=== PATIENT | female | born 1990 | race Caucasian/White ===

== ENCOUNTER 2019-05-23 16:52 | Outpatient (CLI) | payer OTHER, SELFPAY ==
--- NOTE | ~2019-05-23 | XR_ITS ---
EXAMINATION: XR knee LT 3V DATE: 05/23/2019 17:17 INDICATION: Left knee pain TECHNIQUE: Three views of the left knee were obtained. COMPARISON: 12/03/2014 FINDINGS: Alignment is normal. No fracture or osteochondral lesion. Joint spaces are normal with no e rosions. No joint effusion/synovitis. Soft tissues are unremarkable. IMPRESSION: 1. No acute osseous abnormality. Reviewed, dictated and finalized at location A. 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
== END 2019-05-23 16:53 | disposition home or self-care (01) ==
LOC: ANHIMG 16:57
PROVIDERS: PCP Physician Assistant Medical; Visit Provider Orthopaedic Surgery
DX: M25.562 Pain in left knee (principal)
CPT/HCPCS: 73562

== ENCOUNTER 2019-10-31 07:38 | Outpatient (CLI) | payer OTHER, SELFPAY ==
[2019-10-31 07:54] LABS: Hematocrit 38.3 % (37.0-47.0); Mean Corpuscular HGB Conc 33.9 g/dl (32-36); Mean Corpuscular Hemoglobin 30.2 pg (26-34); Mean Corpuscular Volume 89.1 fl (80-100); Mean Platelet Volume 11.3 fl (7.4-10.4); Platelet Count Result 261 k/mm3 (150-375); Red Cell Distribution Width 12.4 % (11.5-14.5); White Blood Count 10.8 K/mm3 (4.5-10.0)
[2019-10-31 08:04] LABS: Blood Urea Nitrogen 12 mg/dL (7-17); Calcium 9.1 mg/dL (8.4-10.2); Carbon Dioxide 24 mmol/L (22-30); Chloride 104 mmol/L (98-107); Cholesterol 197 mg/dL (0-200); Estimated Glomerular Filt Rate > 60; Glucose 87 mg/dL (65-105); HDL Direct 43 mg/dL; Sodium 136 mmol/L (137-145); Triglycerides 153 mg/dL (<150)
[2019-10-31 08:15] LABS: LDL Cholesterol Direct 127 mg/dL
[2019-10-31 08:35] LABS: Thyroid Stimulating Hormone 0.773 uIU/mL (0.465-4.680)
[2019-11-06 03:00] LABS: Insulin Level Total 10.3 uIU/mL (<=19.6)
== END 2019-10-31 07:39 | disposition home or self-care (01) ==
PROVIDERS: PCP Family Medicine; Visit Provider Nurse Practitioner Family
DX: Z13.1 Encounter for screening for diabetes mellitus (principal); Z13.29 Encounter for screening for other suspected endocrine disorder; Z13.220 Encounter for screening for lipoid disorders; E16.1 Other hypoglycemia; R23.8 Other skin changes; R68.89 Other general symptoms and signs
CPT/HCPCS: 36415; 80048; 80061; 83525; 84443; 85027

== ENCOUNTER 2021-08-05 07:30 | Outpatient (CLI) | payer OTHER, SELFPAY ==
[2021-08-05 07:50] LABS: Basophils Absolute Auto 0.1 K/mm3 (0.0-0.1); Basophils Percent Auto 0.6 % (0.2-1.2); Eosinophils Absolute Auto 0.1 K/mm3 (0-0.3); Eosinophils Percent Auto 1.3 % (0-4.4); Hematocrit 39.1 % (37.0-47.0); Hemoglobin 12.6 g/dL (12.0-15.0); Immature Granulocyte Absolute 0.04 K/mm3 (0.00-0.031); Immature Granulocyte Percent A 0.4 % (0-0.5); Lymphocytes Absolute Auto 3.32 K/mm3 (0.9-3.2); Lymphocytes Percent Auto 31.1 % (18.3-44.2); Mean Corpuscular HGB Conc 32.2 g/dl (32-36); Mean Corpuscular Hemoglobin 29.7 pg (26-34); Mean Corpuscular Volume 92.2 fl (80-100); Mean Platelet Volume 10.8 fl (7.4-10.4); Monocytes Absolute Auto 0.9 K/mm3 (0.1-0.6); Monocytes Percent Auto 8.8 % (2.6-8.5); Neutrophils Absolute Auto 6.2 K/mm3 (1.3-6.7); Neutrophils Percent Auto 57.8 % (45.5-73.1); Platelet Count Result 259 k/mm3 (150-375); Red Blood Count 4.24 M/mm3 (4.2-5.4); Red Cell Distribution Width 13.2 % (11.5-14.5); White Blood Count 10.7 K/mm3 (4.5-10.0)
[2021-08-05 08:17] LABS: Alanine Aminotransferase 32 U/L (4-35); Albumin Level 4.4 g/dL (3.5-5.1); Alkaline Phosphatase 52 U/L (38-126); Anion Gap 8 mmol/L (8-16); Aspartate Amino Transferase 30 U/L (14-36); Bilirubin,Total 0.7 mg/dL (0.2-1.3); Blood Urea Nitrogen 15 mg/dL (7-17); Calcium 8.9 mg/dL (8.4-10.2); Carbon Dioxide 26 mmol/L (22-30); Chloride 105 mmol/L (98-107); Cholesterol 239 mg/dL (0-200); Estimated Glomerular Filt Rate > 60; Glucose 96 mg/dL (65-110); HDL Direct 50 mg/dL; Potassium 4.2 mmol/L (3.4-5.0); Sodium 139 mmol/L (137-145); Triglycerides 192 mg/dL (<150)
[2021-08-05 08:27] LABS: LDL Cholesterol Direct 130 mg/dL
[2021-08-05 09:23] LABS: Folic Acid 16.3 ng/mL (2.76->20)
[2021-08-05 09:29] LABS: Vitamin D 25 Hydroxy 36.4 ng/mL
[2021-08-05 09:54] LABS: Hemoglobin A1C 5.3 % (<5.7)
[2021-08-08 05:26] LABS: Prolactin 15.5 ng/mL (***)
[2021-08-08 12:40] LABS: DHEA-Sulfate 309 mcg/dL (18-391)
[2021-08-08 14:43] LABS: Testosterone Free 4.7 pg/mL (0.1-6.4); Testosterone Total 51 ng/dL (2-45)
[2021-08-11 22:02] LABS: Estradiol, Ultrasensitive 28 pg/mL
== END 2021-08-05 07:31 | disposition home or self-care (01) ==
LOC: ANHLAB 07:33
PROVIDERS: PCP Family Medicine; Visit Provider Obstetrics & Gynecology
DX: Z00.00 Encounter for general adult medical examination without abnormal findings (principal); E28.2 Polycystic ovarian syndrome; R63.5 Abnormal weight gain
CPT/HCPCS: 36415; 80053; 80061; 82306; 82607; 82627; 82670; 82746; 83001; 83036; 83498; 84146; 84402; 84403; 85025

== ENCOUNTER 2022-04-14 09:26 | Outpatient (CLI) | payer OTHER, SELFPAY ==
--- NOTE | ~2022-04-14 | XR_ITS ---
Left ankle Technique: AP, oblique, and lateral views were obtained. Clinical History: Pain Findings: No acute fracture or dislocation is seen. Osseous alignment is anatomic. Ankle mortise and other visualized joint spaces are preserved. Soft tissues are otherwise unremarkable. Impression: Unremarkable left ankle. Reviewed, dictated and finalized at location . IFE Impression: Unremarkable left ankle.
== END 2022-04-14 09:27 | disposition home or self-care (01) ==
PROVIDERS: PCP Family Medicine; Visit Provider Nurse Practitioner Family
DX: M25.572 Pain in left ankle and joints of left foot (principal)
CPT/HCPCS: 73610

== ENCOUNTER → 2022-11-23 08:12 | Outpatient (CLI) | payer OTHER, SELFPAY ==
--- NOTE | ~2022-11-23 | MMUS_ITS ---
EXAMINATION: MM diagnostic marnie LT w shalom, US breast LT limited HISTORY: Left breast mass for 5 years. Recent associated pain with the mass. TECHNIQUE: Additional 3-D tomosynthesis images of the left breast were performed and synthetic 2-D im ages were generated. CAD analysis was submitted and interpreted. High resolution Limited left breast ultrasound was performed. COMPARISON: No prior studies for comparison. BREAST PARENCHYMAL COMPOSITION: Breast composed of scattered areas of fibroglandular density FINDINGS: MAMMOGRAPHIC FINDINGS: There is a mass in the lower inner quadrant of the left breast posteriorly which appears to contain l ocules of gas. There is mild overlying skin thickening. There are no suspicious calcifications or arc hitectural distortion. ULTRASOUND: Limited left breast ultrasound: At 9:00, 14 cm from the nipple in the area of palpable concern there is a complex fluid collection measuring 1.7 x 1.2 x 1.7 cm. There are multiple nondependent echogenic foci, possibly gas. There is posterior acoustic enhancement. There is parallel orientation. IMPRESSION: 1. Complex 1.7 cm fluid collection at 9:00, 14 cm from the nipple corresponding to the palpable and m ammographic abnormalities. This mass is suspicious for abscess. 2. Ultrasound-guided aspiration recommended. BI-RADS category 3, probably benign findings. Reviewed, dictated and finalized at location A. IMPRESSION: 1. Complex 1.7 cm fluid collection at 9:00, 14 cm from the nipple corresponding to the palpable and mammographic abnormalities. This mass is suspicious for ab scess. 2. Ultrasound-guided aspiration recommended. BI-RADS category 3, probably benign findings.
== END ==
PROVIDERS: PCP Obstetrics & Gynecology; Visit Provider Obstetrics & Gynecology
DX: N61.1 Abscess of the breast and nipple (principal)
CPT/HCPCS: 76642; 77061; 77065; G0279

== ENCOUNTER 2022-11-23 12:33 | Outpatient (CLI) | payer OTHER, SELFPAY ==
--- NOTE | ~2022-11-23 | US_ITS ---
EXAMINATION: US_BCALIMG_US DATE: 11/25/2022 09:04 CDT INDICATION: Left breast abscess TECHNIQUE: Survey imaging of the left breast was performed. The cyst(s) at the 9:00 position, 14 cm from the nipple were targeted for aspiration. The procedure and its risk and benefits were discussed with the patient. Risks included but were not limited to pain, bleeding and infection. The patient verbalized understanding and provided written consent. A time-out was performed to document the patient's name, date of , and site of procedure. The m edial aspect of the patient's left breast was prepped and draped in usual sterile fashion. 1% lidoca ine was used for local anesthesia. Utilizing ultrasound guidance, a 18-gauge and subsequently 16-gau ge needle was advanced into the fluid collection in the left. Aspiration was performed. 1-2 cc of li ght brown thick fluid obtained without complication. The patient tolerated procedure without immediate complication. Sterile bandages were applied over t he aspiration site(s).] FINDINGS: Successful ultrasound-guided aspiration of complicated fluid collection of the left breast at 9:00, 14 cm from the nipple. Fluid delivered to the laboratory for appropriate evaluation is indic ated by the clinical service. IMPRESSION: 1. Successful ultrasound-guided left breast aspiration. Please refer to laboratory studies. Reviewed, dictated and finalized at location A. IMPRESSION: 1. Successful ultrasound-guided left breast aspiration. Please refer to gilma winn studies.
== END 2022-11-23 12:34 | disposition home or self-care (01) ==
LOC: ANHIMG 12:35
PROVIDERS: PCP Family Medicine; Visit Provider Obstetrics & Gynecology
DX: N61.1 Abscess of the breast and nipple (principal)
CPT/HCPCS: 19000; 76942; 87070; 87075; 87205

== ENCOUNTER 2022-11-28 09:35 | Emergency (ER) | payer OTHER, SELFPAY ==
--- NOTE | ~2022-11-28 | US_ITS ---
US breast LT limited DATE: 11/28/2022 11:29 INDICATION: Known left breast abscess with interval increased swelling, erythema and pain to touch TECHNIQUE: Real-time and color flow imaging of the left breast, targeted to the area of complaint at 9:00 14 cm from nipple COMPARISON: 11/23/2022 diagnostic left mammogram and limited left breast ultrasound examination FINDINGS: There is interval increased size of the complicated cyst at 9:00 14 cm from the nipple sinc e 11/23/2022, the main portion of the abscess measures approximately 1.5 x 2.5 cm cyst with an area of extension measuring another 7.3 by 1.8 cm. Multiple internal echoes are noted consistent with advisory intern al debris. There is through transmission and posterior enhancement. There is surrounding vascularity. IMPRESSION: Increased size of left breast 9:00 abscess since 11/23/2022 Reviewed, dictated and finalized at Location A. Reviewed, dictated and finalized at location A.
[2022-11-28 10:18] VITALS: BP 146/87; PULSE 98; RESP 18; TEMP 36.4; O2SAT 100
[2022-11-28 12:06] LABS: Basophils Absolute Auto 0.1 K/mm3 (0.0-0.1); Basophils Percent Auto 0.5 % (0.2-1.2); Eosinophils Absolute Auto 0.1 K/mm3 (0-0.3); Hematocrit 36.2 % (37.0-47.0); Immature Granulocyte Absolute 0.06 K/mm3 (0.00-0.031); Immature Granulocyte Percent A 0.4 % (0-0.5); Lymphocytes Absolute Auto 3.27 K/mm3 (0.9-3.2); Lymphocytes Percent Auto 22.2 % (18.3-44.2); Mean Corpuscular HGB Conc 33.1 g/dl (32-36); Mean Corpuscular Hemoglobin 29.9 pg (26-34); Mean Platelet Volume 11.6 fl (7.4-10.4); Monocytes Absolute Auto 1.1 K/mm3 (0.1-0.6); Monocytes Percent Auto 7.5 % (2.6-8.5); Neutrophils Absolute Auto 10.1 K/mm3 (1.3-6.7); Neutrophils Percent Auto 68.4 % (45.5-73.1); Platelet Count Result 279 k/mm3 (150-375); Red Blood Count 4.02 M/mm3 (4.2-5.4); White Blood Count 14.7 K/mm3 (4.5-10.0)
[2022-11-28 12:16] LABS: Alanine Aminotransferase 25 U/L (6-35); Albumin Level 4.1 g/dL (3.5-5.1); Alkaline Phosphatase 63 U/L (38-126); Anion Gap 8 mmol/L (8-16); Aspartate Amino Transferase 21 U/L (14-36); Bilirubin,Total 0.6 mg/dL (0.2-1.3); Blood Urea Nitrogen 13 mg/dL (7-17); Calcium 8.7 mg/dL (8.4-10.2); Carbon Dioxide 24 mmol/L (22-30); Chloride 105 mmol/L (98-107); Estimated CRCL calculation 110 ml/min; Estimated Glomerular Filt Rate > 60; Glucose 92 mg/dL (65-110); Potassium 3.9 mmol/L (3.4-5.0); Sodium 137 mmol/L (137-145)
[2022-11-28 12:19] LABS: Partial Thromboplastin Time 25.7 SECONDS (22.3-36.8); Prothrombin Time 13.1 Seconds (11.1-14.7)
--- NOTE | 2022-11-28 12:34 | ED.WOUNDLAC ---
HPI - Wound/Laceration General Chief Complaint: Wound/Laceration Stated Complaint: abscess on breast Time Seen by Provider: 11/28/22 10:57 History of Present Illness HPI narrative: Patient is a 32-year-old female who was referred to the ER by her progress man for evaluation of a breast abscess. Patient was having pain last week and underwent needle aspiration of a cyst to her breast. She is placed on oral antibiotics which she has been taking daily. The pain has increased markedly over the last couple of days. She has had purulent drainage has foul in odor over the medial aspect of her left breast. No pain into the axilla around the nipple. No additional concerns. Reports she did have a chronic cyst in the area. Related Data Home Medications Medication Instructions Recorded Confirmed tirzepatide 2.5 mg/0.5 mL 2.5 mg subcut WEEKLY 08/10/22 11/22/22 subcutaneous pen injector (Mounjaro) metformin 500 mg tablet 500 mg PO DAILY 11/22/22 11/22/22 Allergies Allergy/AdvReac Type Severity Reaction Status Date / Time No Known Allergies Allergy Verified 11/28/22 08:29 Review of Systems Review of Systems: All systems reviewed & are unremarkable except as noted in HPI and below Constitutional: Constitutional: Denies chills, Denies fatigue and Denies fever(s) Cardiovascular: Cardiovascular: Denies chest pain and Denies rapid heart rate Integumentary/Breasts: Skin/Breast: Reports breast pain and Reports erythema Comments: Breast abscess PMFSH Past Medical History Medical History BMI 35.0-35.9,adult PCOS (polycystic ovarian syndrome) Surgical History Surgical History History of knee surgery 02/2011- Dr. Luque History of tonsillectomy and adenoidectomy 2007- Dr. Dumas Family History Family History Grandparent Family history of heart disease in male family member before age 55 Diabetes mellitus Father No problems noted. Mother No problems noted. Sibling No problems noted. Other Family history of malignant neoplasm of bone Social History Social History Smoking status: Former smoker Tobacco type: e-cigarettes/vaping Second hand tobacco smoke exposure: No Alcohol intake: current Alcohol use details: Occasional Substance use: current Substance use type: does not use Living arrangements: alone Occupation/Education: occupation Additional occupation/education comments: [employer] Gender identity (if verbalized by the patient): Female Sexual Orientation (if Verbalized by the Patient): Straight or Heterosexual Exam Narrative: GENERAL: Well-appearing, well-nourished, and in no acute distress. HEAD: Normocephalic, atraumatic. ENT: Mucous membranes moist. Chest: Left breast with abscess medially at the chest wall. Fluctuance noted as well as mild induration and surrounding erythema. No active drainage. EXTREMITIES: Normal range of motion. No edema. SKIN: Warm, dry, no rash. NEURO: Alert and oriented x3. PSYCH: Normal mood and affect. Course Course Emergency Course: 1235: General surgery contacted through a nurse in the OR. We will wait additional management plan. Patient aware of diagnosis and lab results. 1348: Patient resting comfortably. Bedside incision and drainage has been performed. This recommended the patient be sent home with oral pain medications and that she finished her home antibiotics. Vital Signs Vital signs: Vital Signs Temperature 97.5 F L 11/28/22 10:18 Pulse Rate 98 11/28/22 10:18 Respiratory Rate 18 11/28/22 10:18 Blood Pressure 146/87 H 11/28/22 10:18 Pulse Oximetry 100 11/28/22 10:18 Oxygen Delivery Room Air 11/28/22 10:18 Temperature 97.5 F L 11/28/22 10
[2022-11-28] MEDS: MORPHINE SULFATE (*CRX) 4 MG/ML INJ IV PUSH (12:44)
[2022-11-28 12:46] VITALS: BP 127/66; PULSE 75; O2SAT 97
[2022-11-28] MEDS: LIDO 2%/EPINEPHRINE 1:100,000 20 ML VIAL (13:14)
--- NOTE | 2022-11-28 13:29 | PM.CNGS ---
Assessment and Plan Assessment and plan (1) Abscess of left breast: Code(s): N61.1 - Abscess of the breast and nipple Status: Acute Assessment and Plan: plan for incision and drainage at bedside, local wound care instructions, continue p.o. antibiotics, follow-up as outpatient History of Present Illness Consult details Consult date: 11/28/22 Reason for consult: wound care Requesting physician: Zan Moreno MD Narrative: The patient is a 32-year-old female presenting to the emergency department complaining of severe left breast pain. The patient reports that she has had an abscess there over the last week. The patient reports she has a known cyst that has become infected. The patient actually had this aspirated a few days ago, reports the area seems larger and more symptomatic at this time. The patient has been started p.o. antibiotics. Review of Systems Review of Systems: All systems reviewed & are unremarkable except as noted in HPI and below PMFSH Past Medical History Medical History BMI 35.0-35.9,adult PCOS (polycystic ovarian syndrome) Surgical History Surgical History History of knee surgery 02/2011- Dr. Luque History of tonsillectomy and adenoidectomy 2007- Dr. Dumas Family History Family History Grandparent Family history of heart disease in male family member before age 55 Diabetes mellitus Father No problems noted. Mother No problems noted. Sibling No problems noted. Other Family history of malignant neoplasm of bone Social History Social History Smoking status: Former smoker Tobacco type: e-cigarettes/vaping Second hand tobacco smoke exposure: No Alcohol intake: current Alcohol use details: Occasional Substance use: current Substance use type: does not use Living arrangements: alone Occupation/Education: occupation Additional occupation/education comments: [employer] Gender identity (if verbalized by the patient): Female Sexual Orientation (if Verbalized by the Patient): Straight or Heterosexual Meds Home Medications and Allergies Home Medications Medication Instructions Recorded Confirmed Type sumatriptan succinate 50 mg tablet See Rx Instructions PO .COMPLEX #9 11/12/21 11/22/22 Rx (Imitrex) tabs norethindrone 1.5 mg-ethinyl 1 tablet PO DAILY #84 tabs 08/10/22 11/22/22 Rx estradiol 30 mcg(21)/iron 75 mg(7) tablet (Junel FE 1.5/30 (28)) tirzepatide 2.5 mg/0.5 mL 2.5 mg subcut WEEKLY 08/10/22 11/22/22 History subcutaneous pen injector (Kevyn) metformin 500 mg tablet 500 mg PO DAILY 11/22/22 11/22/22 History Allergies Allergy/AdvReac Type Severity Reaction Status Date / Time No Known Allergies Allergy Verified 11/28/22 08:29 Vital Signs Vital Signs - 24 hr 11/28/22 10:18 11/28/22 12:46 Temperature 36.4 C L Pulse Rate 98 75 Respiratory Rate 18 Blood Pressure 146/87 H 127/66 Pulse Oximetry 100 97 Oxygen Delivery Room Air Exam Const: General: cooperative, acute distress mild and uncomfortable HENMT: Head: normal to inspection, normocephalic and atraumatic Eyes: General: appearance normal, both eyes and all related structures Neck: Neck: normal visual inspection, full ROM and no lymphadenopathy Chest: Other: Left breast abscess - 9 o'clock position, indurated and inflamed, very tender to palpation, overlying cellulitis Resp: Auscultation: clear to auscultation bilaterally Cardio: Rate: regular rate Rhythm: regular rhythm GI: Inspection: normal to inspection Skin: General skin exam: normal color and no rashes or lesions noted Neuro: General: patient oriented x3 and CN's II-XI intact bilaterally Extrem: General:
--- NOTE | 2022-11-28 13:34 | W.PM.PROC2 ---
Procedure Note - Detailed Date of Procedure 11/28/22 Pre-op Diagnosis left breast abscess Post-op Diagnosis Same Procedure Performed complex incision and drainage left breast abscess measuring approximately 4 x 2 cm Surgeon Annelise Walden MD Anesthesia Local Indications 32-year-old female presenting to the emergency department with worsening left breast abscess Findings moderate amount of purulent drainage, cavity measuring approximately 4 x 2 cm Description of Procedure The patient was placed in the supine position. Then proceeded to locally anesthetize the area with 2% lidocaine with epinephrine approximately 10 mL. The area was then prepped and draped in normal sterile fashion. Time-out was then done to verify the patient's identity, as well as the procedure being performed. I then used a 15 blade scalpel to make an incision over the most fluctuant area of this abscess. This incision was taken through the dermis into the subcutaneous tissue. Upon getting into the abscess cavity, a moderate amount of purulent drainage was encountered. I then used the hemostat to completely dissect and drain this cavity. Once the cavity was completely drained and explored, it measured approximately 4 x 2 cm. I then packed the cavity with quarter-inch iodoform to keep the area open and draining. Sterile dressing was then placed. The patient tolerated the procedure well and was alert and awake afterwards. Estimated Blood Loss 5 Drains No Packing Yes Pathology None sent Complications No immediate complications Condition Stable Disposition No change [facility] Billing Surgery - Charge Forward: Surgery Billing
[2022-11-28 13:45] VITALS: BP 160/76; PULSE 82; O2SAT 99
== END 2022-11-28 14:09 | disposition home or self-care (01) ==
LOC: ANHED 11:07 → ANHSURGERY 13:48 → ANHED 13:53
PROVIDERS: Emergency Provider Emergency Medicine; PCP Obstetrics & Gynecology
DX: N61.1 Abscess of the breast and nipple (principal); E28.2 Polycystic ovarian syndrome; Z87.891 Personal history of nicotine dependence
CPT/HCPCS: 10061; 36415; 76642; 80053; 85025; 85610; 85730; 96374; 99284; J2270

== ENCOUNTER 2023-04-17 07:32 | Outpatient (CLI) | payer OTHER, SELFPAY ==
[2023-04-17 07:52] LABS: Basophils Absolute Auto 0.1 K/mm3 (0.0-0.1); Basophils Percent Auto 0.6 % (0.2-1.2); Eosinophils Absolute Auto 0.1 K/mm3 (0-0.3); Eosinophils Percent Auto 1.5 % (0-4.4); Hematocrit 40.8 % (37.0-47.0); Hemoglobin 13.4 g/dL (12.0-15.0); Immature Granulocyte Absolute 0.02 K/mm3 (0.00-0.031); Immature Granulocyte Percent A 0.2 % (0-0.5); Lymphocytes Absolute Auto 2.56 K/mm3 (0.9-3.2); Lymphocytes Percent Auto 29.3 % (18.3-44.2); Mean Corpuscular HGB Conc 32.8 g/dl (32-36); Mean Corpuscular Hemoglobin 29.5 pg (26-34); Mean Corpuscular Volume 89.9 fl (80-100); Mean Platelet Volume 11.1 fl (7.4-10.4); Monocytes Absolute Auto 0.7 K/mm3 (0.1-0.6); Monocytes Percent Auto 8.3 % (2.6-8.5); Neutrophils Absolute Auto 5.3 K/mm3 (1.3-6.7); Neutrophils Percent Auto 60.1 % (45.5-73.1); Platelet Count Result 285 k/mm3 (150-375); Red Blood Count 4.54 M/mm3 (4.2-5.4); Red Cell Distribution Width 13.3 % (11.5-14.5); White Blood Count 8.8 K/mm3 (4.5-10.0)
[2023-04-17 08:18] LABS: Alanine Aminotransferase 31 U/L (6-35); Albumin Level 4.4 g/dL (3.5-5.1); Alkaline Phosphatase 55 U/L (38-126); Anion Gap 10 mmol/L (8-16); Aspartate Amino Transferase 28 U/L (14-36); Bilirubin,Total 1.3 mg/dL (0.2-1.3); Blood Urea Nitrogen 11 mg/dL (7-17); Carbon Dioxide 25 mmol/L (22-30); Chloride 104 mmol/L (98-107); Cholesterol 225 mg/dL (0-200); Estimated Glomerular Filt Rate > 60; Glucose 90 mg/dL (65-110); HDL Direct 46 mg/dL; Potassium 3.7 mmol/L (3.4-5.0); Sodium 139 mmol/L (137-145); Triglycerides 116 mg/dL (<150)
[2023-04-17 08:20] LABS: LDL Cholesterol Direct 142 mg/dL
[2023-04-17 13:11] LABS: Hemoglobin A1C 5.2 % (<5.7)
[2023-04-19 21:39] LABS: Insulin Level Total 14.7 uIU/mL (<=18.4)
== END 2023-04-17 07:33 | disposition home or self-care (01) ==
LOC: ANHLAB 07:35
PROVIDERS: PCP Family Medicine; Visit Provider Nurse Practitioner Family
DX: E28.2 Polycystic ovarian syndrome (principal); D72.829 Elevated white blood cell count, unspecified; E78.5 Hyperlipidemia, unspecified; Z13.220 Encounter for screening for lipoid disorders; E88.810 Metabolic syndrome
CPT/HCPCS: 36415; 80053; 80061; 83036; 83525; 84443; 85025

== ENCOUNTER 2023-07-10 10:34 | Outpatient (CLI) | payer OTHER, SELFPAY ==
--- NOTE | ~2023-07-10 | XR_ITS ---
Right ankle Technique: AP and lateral views were obtained. Clinical History: Pain Findings: No acute fracture or dislocation is seen. Osseous alignment is anatomic. Ankle mortise and other visualized joint spaces are preserved. Soft tissues are otherwise unremarkable. Impression: Unremarkable right ankle. Reviewed, dictated and finalized at location . Impression: Unremarkable right ankle.
--- NOTE | ~2023-07-10 | XR_ITS ---
Left foot Technique: AP, oblique, and lateral views were obtained. Clinical History: Pain Findings: Probable small acute, oblique intra-articular fracture at the lateral aspect of the base of the second middle phalanx. No other fracture or dislocation seen. Joint spaces are preserved without erosive or degenerative change. Soft tissues are unremarkable. Impression: Small acute, oblique intra-articular fracture at the lateral aspect of the base of the second middle phalanx. Reviewed, dictated and finalized at location M. Impression: Small acute, oblique intra-articular fracture at the lateral aspect of the base of the second middle phalanx.
== END 2023-07-10 10:35 | disposition home or self-care (01) ==
LOC: ANHIMG 10:38
PROVIDERS: PCP Family Medicine; Visit Provider Nurse Practitioner Family
DX: S99.929A Unspecified injury of unspecified foot, initial encounter (principal); S99.919A Unspecified injury of unspecified ankle, initial encounter; X58.XXXA Exposure to other specified factors, initial encounter
CPT/HCPCS: 73600; 73630

== ENCOUNTER 2023-08-21 06:39 | Outpatient (CLI) | payer OTHER, SELFPAY ==
--- NOTE | ~2023-08-21 | MR_ITS ---
MRI of the right ankle Clinical history: Pain Technique: Coronal proton-density and proton-density fat-sat images, axial proton-density and proton- density fat-sat images, and sagittal proton-density and proton-density fat-sat images were acquired. Findings: Syndesmotic ligaments are intact. There is probable mild thickening and increased signal of the anterior talofibular ligament and calcaneofibular ligament. Posterior talar fibular ligament is intact. Deltoid ligament is intact. Medial flexor tendons, peroneal tendons, anterior extensor tendons, and Achilles tendon are intact. No osteochondral lesion of the talar dome seen. There is mild amorphous marrow edema of the cuboid, s uggestive of bone contusion. Remaining bone marrow signals are unremarkable. Joint spaces are preserv ed. No joint effusion seen. Plantar fascia intact. No soft tissue mass or fluid collection evident. Impression: Thickening and increased signal of the anterior talofibular ligament and calcaneofibular ligament, co nsistent with lateral ankle sprain. Amorphous marrow edema in the cuboid, most compatible with contusion. No fracture evident. Reviewed, dictated and finalized at location . Impression: Thickening and increased signal of the anterior talofibular ligament and calcan eofibular ligament, consistent with lateral ankle sprain. Amorphous marrow edema in the cuboid, most compatible with contusion. No fractu re evident.
== END 2023-08-21 06:40 | disposition home or self-care (01) ==
PROVIDERS: PCP Family Medicine; Visit Provider Podiatrist Foot & Ankle Surgery
DX: S93.402A Sprain of unspecified ligament of left ankle, initial encounter (principal); X58.XXXA Exposure to other specified factors, initial encounter
CPT/HCPCS: 73721

== ENCOUNTER 2023-11-03 09:22 | Outpatient (CLI) | payer OTHER, SELFPAY ==
--- NOTE | ~2023-11-03 | US_ITS ---
US breast LT limited 11/03/2023 10:13 Indication: History of left breast abscess. Procedure: High-resolution Limited ultrasound of the left breast Comparison: Ultrasound dated 11/28/2022 Findings: There is heterogeneous hypoechoic soft tissue in the subcutaneous tissues at 9:00, 14 cm fr om the nipple. This hypoechoic region extends to the skin surface, consistent with scarring. No discr ete fluid collection to suggest residual abscess. No suspicious masses. Impression: 1: No evidence for residual abscess of the left breast. BI-RADS CATEGORY 2 - BENIGN FINDINGS Reviewed, dictated and finalized at location B. Impression: 1: No evidence for residual abscess of the left breast. BI-RADS CATEGORY 2 - BENIGN FINDINGS
== END 2023-11-03 09:23 | disposition home or self-care (01) ==
LOC: ANHIMG 09:24
PROVIDERS: PCP Family Medicine; Visit Provider Surgery
DX: N61.1 Abscess of the breast and nipple (principal)
CPT/HCPCS: 76642

== ENCOUNTER 2024-11-12 15:27 | Outpatient (CLI) | payer OTHER, SELFPAY ==
--- NOTE | ~2024-11-12 | XR_ITS ---
EXAMINATION: XR elbow LT 2V DATE: 11/12/2024 15:44 INDICATION: Left elbow pain TECHNIQUE: Anteroposterior and lateral views of the left elbow were obtained. COMPARISON: None. FINDINGS: Alignment is normal. No fracture. Joint spaces are normal. No cortical erosions or osteochondral lesi ons. Soft tissues are unremarkable. No left elbow joint effusion. IMPRESSION: 1. Normal left elbow radiographs. Reviewed, dictated and finalized at location A.
--- OUTSIDE RECORDS SUMMARY | 2024-11-12 15:30 | XMS_ITS | Clinical Summary ---
Author Organization [facility] Address [address] 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,non-owned Affiliates and Associated Physician Practices is amultiple site organization consisting of ambulatory clinics and hospital sitesin [place], [place], [place] and [place]. This disclosure is being madepursuant to the Care Everywhere program and may not contain all information available regarding this patient. Last updated 17.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 Gender Identity Not on file Sexual Orientation Not on file Plan of Treatment Health Maintenance Due Date Last Done Comments HIV SCREENING 2005 HEPATITIS C SCREENING 10/27/2008 DTAP/TDAP/TD VACCINES (1 - Tdap) 2009 HEPATITIS B VACCINE (1 of 3 - 19+ 3-dose series) 2009 PAP SMEAR 11/02/2011 HPV VACCINE (1 - 3-dose SCDM series) 2017 COVID-19 VACCINE ( - 2023-2 5 season) 2023 DEPRESSION SCREENING 04/10/2024 INFLUENZA VACCINE (#1) 2024 ZOSTER VACCINE (1 of 2) 2040 HIB VACCINE Aged Out No longer eligi ble based on patient's age to complete this topic MENINGOCOCCAL (Group B) VACC INE SHARED DECISION-MAKING Aged Out No longer eligibl e based on patient's age to complete this topic MENINGOCOCCAL GROUPS A/C/Y/W VACCINE Aged Out No longer eligible b ased on patient's age to complete this topic PNEUMOCOCCAL VACCINE Aged Out No long er eligible based on patient's age to complete this topic Insurance [facility]
--- OUTSIDE RECORDS SUMMARY | 2024-11-12 15:30 | XMS_ITS | Encounter Summary ---
Author Organization [facility] Address [address] [address] Care Team Providers Care Personal Lines Insurance Advisor Name Role Phone Unavailable Primary Care Provider Unavailabl e Encounter Details Date Type Department Care Team (Late st Contact Info) Description 05/30/2024 Lab Requisition [facility] - DermPath Lab [address] [place] [id number] Andrew Coats MD [address] [place] [address] Social History Tobacco Use Types Packs/Day Years Used Date Smoking Tobacco: Never Assessed Comments Unknown Sex and Gender Information Value Date Recorded Sex Assigned at Not on file 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 Gender Identity Not on file Sexual Orientation Not on file documented as of this encounter Plan of Treatment Not on file documented as of this encounter Procedures Procedure Name Priority Date/Time Associated Diagnosis Comments DERMATOPATHOLOGY Routine 05/29/2024 12:0 0 AM SMOKE EATER documented in this encounter Results * DERMATOPATHOLOGY (05/29/2024 12:00 AM SMOKE EATER) Case Report Dermatopathology Report Case: [id number] Authorizing Provider: Andrew Coats MD Collected: 05/29/2024 12:00 AM Ordering Location: [facility] - Received: 05/30/2024 04:23 PM DermPath Lab Pathologist: Nori Mann MD Specimen: Skin, right flank 1:49 PM [facility] Final Diagnosis Specimen A. SKIN, right flank: INTRADERMAL MELANOCYTIC NEVUS (D22.5) SEBORRHEIC KERATOSIS (L82.1) 1:49 PM [facility]ERMAT[facility] at [address] SMOKE EATER Clinical History R/O Benign Nevus vs Neoplasm 1:49 PM [facility]MAT[facility]OR[facility] Gross Description Specimen A: Received is one formalin filled container labeled with the patient's name and designated right flank. The specimen consists of a shave biopsy measuring 10x7x2 mm. Jar 0. 1:49 PM [facility] DERMATOPATHOLOGY LABORATORY Microscopic Description Specimen A. SKIN, right flank: There are nests of cytologically bland melanocytes within the dermis that mature with depth. Sections show an acanthotic lesion composed of relatively uniform keratinocytes. There is hyperkeratosis and pseudo horn cysts formation. 1:49 PM [facility] DERMATOPATHOLOGY LABORATORY Disclaimer An external and internal positive and negative controls are appropriate for the histochemical, immunohistochemical and immunofluorescence stain(s) in this case (if any), except where stated explicitly. The performance characteristics of the stain(s) cited in this report were developed and its performance characteristic determined by the Dermatopathology Laboratory at [facility], directed by Dr. Leo Gutierrez. These tests need not be, and therefore are not, approved by the [place] Food and Drug Administration. The tests are used for clinical purposes. Billing Codes Specimen Charges Stain Charges 54350 1 1:49 PM [facility]ERMAT[facility]ORATORY Embedded Images 1:49 PM [facility] DERMATOPATHOLOGY LABORATORY Pathology/Cytolog y TISSUE SPECIMEN FROM SKIN / Unknown 05/29/2024 05/30/2024 4:23 PM SMOKE EATER Andrew Coats MD LAB - PATHOLOGY/CYTOLOGY ORDERAB LES Final Result DERMATOPATHOLOGY LABORATORY [facility] - Department of Dermatology [address] [place] [address], [facility] [phone] documented in this encounter Visit Diagnoses Not on filedocumented in this encounter
== END 2024-11-12 15:28 | disposition home or self-care (01) ==
LOC: ANHIMG 15:29
PROVIDERS: PCP Family Medicine; Visit Provider Orthopaedic Surgery
DX: M25.522 Pain in left elbow (principal)
CPT/HCPCS: 73070

== ENCOUNTER 2024-12-31 07:58 | Outpatient (CLI) | payer OTHER, SELFPAY ==
--- OUTSIDE RECORDS SUMMARY | 2024-12-31 08:14 | XMS_ITS | Clinical Summary ---
Author Organization [facility] Address [address] [place] [address] Care Team Providers Care Blueprint Developer Name Role Phone Unavailable Primary Care Provider Unavailabl e Source Comments [facility],non-owned Affiliates and Associated Physician Practices is amultiple site organization consisting of ambulatory clinics and hospital sitesin [place], [place], [place] and [place]. This disclosure is being madepursuant to the Care Everywhere program and may not contain all information available regarding this patient. Last updated 17.[facility] Social History Tobacco Use Types Packs/Day Years Used Date Smoking Tobacco: Never Assessed Comments Unknown Sex and Gender Information Value Date Recorded Sex Assigned at Not on file Legal Sex Female 4:19 PM SENIOR CYTOGENETICS LABORATORY DIRECTOR Gender Identity Not on file Sexual Orientation Not on file Plan of Treatment Health Maintenance Due Date Last Done Comments HIV SCREENING 2005 HEPATITIS C SCREENING 10/27/2008 DTAP/TDAP/TD VACCINES (1 - Tdap) 2009 HEPATITIS B VACCINE (1 of 3 - 19+ 3-dose series) 2009 PAP SMEAR 11/02/2011 HPV VACCINE (1 - 3-dose SCDM series) 2017 DEPRESSION SCREENING 04/10/2024 COVID-19 VACCINE ( - 2023-2 5 season) 2024 INFLUENZA VACCINE (#1) 2024 ZOSTER VACCINE (1 [...] patient's age to complete this topic Insurance [facility]
--- OUTSIDE RECORDS SUMMARY | 2024-12-31 08:14 | XMS_ITS | Encounter Summary ---
Author Organization [facility] Address [address] [place] [address] Care Team Providers Care Flight Superintendent Name Role Phone Unavailable Primary Care Provider Unavailabl e Encounter Details Date Type Department Care Team (Late st Contact Info) Description 05/30/2024 Lab Requisition [facility] - DermPath Lab [address] [place] [id number] Andrew Coats MD [address] [place] [address] Social History Tobacco Use Types Packs/Day Years Used Date Smoking Tobacco: Never Assessed Comments Unknown Sex and Gender Information Value Date Recorded Sex Assigned at Not on file Legal Sex Female 4:19 PM GLOBAL ACCOUNT MANAGER Gender Identity Not on file Sexual Orientation Not on file documented as of this encounter Plan of Treatment Not on file documented as of this encounter Procedures Procedure Name Priority Date/Time Associated Diagnosis Comments DERMATOPATHOLOGY Routine 05/29/2024 12:0 0 AM GLOBAL ACCOUNT MANAGER documented in this encounter Results * DERMATOPATHOLOGY (05/29/2024 12:00 AM GLOBAL ACCOUNT MANAGER) Case Report Dermatopathology Report Case: [id number] Authorizing Provider: Andrew Coats MD Collected: 05/29/2024 12:00 AM Ordering Location: [facility] - Received: 05/30/2024 04:23 PM DermPath Lab Pathologist: Nori Mann MD Specimen: Skin, right flank 1:49 PM GLOBAL ACCOUNT MANAGER DERMATOPATHOLOGY LABORATORY Final Diagnosis Specimen A. SKIN, right flank: INTRADERMAL MELANOCYTIC NEVUS (D22.5) SEBORRHEIC KERATOSIS (L82.1) 1:49 PM GLOBAL ACCOUNT MANAGER DERMATOPATHOLOGY LABORATORY at 1349 GLOBAL ACCOUNT MANAGER Clinical History R/O Benign Nevus vs Neoplasm 1:49 PM GLOBAL ACCOUNT MANAGER DERMATOPATHOLOGY LABORATORY Gross Description Specimen A: Received is one formalin filled container labeled with the patient's name and designated right flank. The specimen consists of a shave biopsy measuring 10x7x2 mm. Jar 0. 1:49 PM [facility] DERMATOPATHOLOGY LABORATORY Microscopic Description Specimen A. SKIN, right flank: There are nests of cytologically bland melanocytes within the dermis that mature with depth. Sections show an acanthotic lesion composed of relatively uniform keratinocytes. There is hyperkeratosis and pseudo horn cysts formation. 1:49 PM [facility] DERMATOPATHOLOGY LABORATORY Disclaimer An external and internal positive and negative controls are appropriate for the histochemical, immunohistochemical and immunofluorescence stain(s) in this case (if any), except where stated explicitly. The performance characteristics of the stain(s) cited in this report were developed and its performance characteristic determined by the Dermatopathology Laboratory at [facility], directed by Dr. Leo Gutierrez. These tests need not be, and therefore are not, approved by the [place] Food and Drug Administration. The tests are used for clinical purposes. Billing Codes Specimen Charges Stain Charges 24468 1 1:49 PM GLOBAL ACCOUNT MANAGER DERMATOPATHOLOGY LABORATORY Embedded Images 1:49 PM [facility] DERMATOPATHOLOGY LABORATORY Pathology/Cytolog y TISSUE SPECIMEN FROM SKIN / Unknown 05/29/2024 05/30/2024 4:23 PM GLOBAL ACCOUNT MANAGER Andrew Coats MD LAB - PATHOLOGY/CYTOLOGY ORDERAB LES Final Result DERMATOPATHOLOGY LABORATORY [facility] - Department of Dermatology [address] [place] [address], [facility] [phone] documented in this encounter Visit Diagnoses Not on filedocumented in this encounter
[2024-12-31 08:36] LABS: Hematocrit 41.9 % (37.0-47.0); Hemoglobin 13.7 g/dL (12.0-15.0); Immature Granulocyte Percent A 0.2 % (0-0.5); Lymphocytes Absolute Auto 3.03 K/mm3 (0.9-3.2); Mean Corpuscular HGB Conc 32.7 g/dl (32-36); Mean Corpuscular Hemoglobin 29.3 pg (26-34); Mean Corpuscular Volume 89.7 fl (80-100); Nucleated Red Blood Cells Absolute Auto 0.000 K/mm3 (0.0-0.012); Nucleated Red Blood Cells Perc 0.0 % (0.0-0.2); Platelet Count Result 308 k/mm3 (150-375); Red Blood Count 4.67 M/mm3 (4.2-5.4); White Blood Count 9.8 K/mm3 (4.5-10.0)
[2024-12-31 08:58] LABS: Alanine Aminotransferase 30 U/L (6-35); Albumin Level 4.3 g/dL (3.5-5.1); Alkaline Phosphatase 55 U/L (38-126); Anion Gap 11 mmol/L (4-12); Aspartate Amino Transferase 30 U/L (14-36); Bilirubin,Total 1.1 mg/dL (0.2-1.3); Blood Urea Nitrogen 14 mg/dL (7-17); Calcium 9.2 mg/dL (8.4-10.2); Carbon Dioxide 22 mmol/L (22-30); Chloride 105 mmol/L (98-107); Cholesterol 236 mg/dL (0-200); Estimated Glomerular Filt Rate > 60; Glucose 83 mg/dL (65-110); HDL Direct 52 mg/dL; Potassium 3.8 mmol/L (3.4-5.0); Sodium 138 mmol/L (137-145); Total Protein 7.6 g/dL (6.3-8.2); Triglycerides 205 mg/dL (<150)
[2024-12-31 09:01] LABS: Iron 135 ug/dL (37-170)
[2024-12-31 09:22] LABS: Percent Iron Saturation 26 % (20-50)
[2024-12-31 09:39] LABS: Thyroid Stimulating Hormone Reflex 1.720 uIU/mL (0.465-4.68)
[2024-12-31 09:43] LABS: Ferritin 17.30 ng/mL (6.24-137)
[2024-12-31 10:30] LABS: Hemoglobin A1C 5.3 % (<5.7)
== END 2024-12-31 07:59 | disposition home or self-care (01) ==
LOC: ANHLAB 07:59
PROVIDERS: PCP Family Medicine; Visit Provider Obstetrics & Gynecology
DX: E28.2 Polycystic ovarian syndrome (principal); E88.810 Metabolic syndrome
CPT/HCPCS: 36415; 80053; 80061; 82728; 83036; 83540; 83550; 84146; 84443; 85025

== ENCOUNTER 2025-01-17 10:42 | Outpatient (CLI) | payer OTHER, SELFPAY ==
[2025-01-17 11:25] LABS: Add Urine Microscopic? YES; Appearance Urine Cloudy (Clear); Glucose Urine UA Negative (Negative); Leukocyte Esterase Ur 2+ LEU/UL (Negative); Nitrate Urine Positive (Negative); Non Pathogenic Casts 0-2; Specific Grav Ur 1.022 (1.001-1.035)
== END 2025-01-17 10:43 | disposition home or self-care (01) ==
LOC: ANHLAB 10:43
PROVIDERS: PCP Family Medicine; Visit Provider Obstetrics & Gynecology
DX: R35.0 Frequency of micturition (principal)
CPT/HCPCS: 81001; 87086

== ENCOUNTER 2025-02-18 07:24 | Outpatient (CLI) | payer OTHER, SELFPAY ==
--- OUTSIDE RECORDS SUMMARY | 2025-02-18 07:27 | XMS_ITS | Encounter Summary ---
Author Organization [facility] Address [address] [place] [address] Care Team Providers Care Street Cleaner Name Role Phone Unavailable Primary Care Provider Unavailabl e Encounter Details Date Type Department Care Team (Late st Contact Info) Description 05/30/2024 Lab Requisition [facility] - DermPath Lab [address] [place] [phone] Andrew Coats MD [address] [place] [address] Social History Tobacco Use Types Packs/Day Years Used Date Smoking Tobacco: Never Assessed Comments Unknown Sex and Gender Information Value Date Recorded Sex Assigned at Not on file Legal Sex Female 4:19 PM LEARNING TECHNOLOGIES SPECIALIST Gender Identity Not on file Sexual Orientation Not on file documented as of this encounter Plan of Treatment Not on file documented as of this encounter Procedures Procedure Name Priority Date/Time Associated Diagnosis Comments DERMATOPATHOLOGY Routine 05/29/2024 12:0 0 AM LEARNING TECHNOLOGIES SPECIALIST documented in this encounter Results * DERMATOPATHOLOGY (05/29/2024 12:00 AM LEARNING TECHNOLOGIES SPECIALIST) Case Report Dermatopathology Report Case: [id number] Authorizing Provider: Andrew Coats MD Collected: 05/29/2024 12:00 AM Ordering Location: [facility] Physician [facility] - Received: 05/30/2024 04:23 PM DermPath Lab Pathologist: Nori Mann MD Specimen: Skin, right flank 1:49 PM LEARNING TECHNOLOGIES SPECIALIST DERMATOPATHOLOGY LABORATORY Final Diagnosis Specimen A. SKIN, right flank: INTRADERMAL MELANOCYTIC NEVUS (D22.5) SEBORRHEIC KERATOSIS (L82.1) 1:49 PM LEARNING TECHNOLOGIES SPECIALIST DERMATOPATHOLOGY LABORATORY at [address] LEARNING TECHNOLOGIES SPECIALIST Clinical History R/O Benign Nevus vs Neoplasm 1:49 PM LEARNING TECHNOLOGIES SPECIALIST DERMATOPATHOLOGY LABORATORY Gross Description Specimen A: Received is one formalin filled container labeled with the patient's name and designated right flank. The specimen consists of a shave biopsy measuring 10x7x2 mm. Jar 0. 1:49 PM [facility] DERMATOPATHOLOGY LABORATORY Microscopic Description Specimen A. SKIN, right flank: There are nests of cytologically bland melanocytes within the dermis that mature with depth. Sections show an acanthotic lesion composed of relatively uniform keratinocytes. There is hyperkeratosis and pseudo horn cysts formation. 1:49 PM [facility] DERMATOPATHOLOGY LABORATORY Disclaimer An external and internal positive and negative controls are appropriate for the histochemical, immunohistochemical and immunofluorescence stain(s) in this case (if any), except where stated explicitly. The performance characteristics of the stain(s) cited in this report were developed and its performance characteristic determined by the Dermatopathology Laboratory at [facility], directed by Dr. Leo Gutierrez. These tests need not be, and therefore are not, approved by the [place] Food and Drug Administration. The tests are used for clinical purposes. Billing Codes Specimen Charges Stain Charges 24252 1 1:49 PM LEARNING TECHNOLOGIES SPECIALIST DERMATOPATHOLOGY LABORATORY Embedded Images 1:49 PM [facility] DERMATOPATHOLOGY LABORATORY Pathology/Cytolog y TISSUE SPECIMEN FROM SKIN / Unknown 05/29/2024 05/30/2024 4:23 PM LEARNING TECHNOLOGIES SPECIALIST Andrew Coats MD LAB - PATHOLOGY/CYTOLOGY ORDERAB LES Final Result DERMATOPATHOLOGY LABORATORY [facility] - Department of Dermatology [address] [place] [address], [facility] [phone] documented in this encounter Visit Diagnoses Not on filedocumented in this encounter
--- OUTSIDE RECORDS SUMMARY | 2025-02-18 07:27 | XMS_ITS | Clinical Summary ---
Author Organization [facility] Address [address] [place] [address] Care Team Providers Care Roller Coaster Engineer Name Role Phone Unavailable Primary Care Provider Unavailabl e Source Comments [facility],non-owned Affiliates and Associated Physician Practices is amultiple site organization consisting of ambulatory clinics and hospital sitesin [place], [place], [place] and [place]. This disclosure is being madepursuant to the Care Everywhere program and may not contain all information available regarding this patient. Last updated 17.[facility] Social History Tobacco Use Types Packs/Day Years Used Date Smoking Tobacco: Never Assessed Comments Unknown Sex and Gender Information Value Date Recorded Sex Assigned at Not on file Legal Sex Female 4:19 PM SPINNER CONCRETE PIPE Gender Identity Not on file Sexual Orientation [...] patient's age to complete this topic Insurance [facility]
[2025-02-18 09:00] LABS: Vitamin B12 282.0 pg/mL (239-931)
== END 2025-02-18 07:25 | disposition home or self-care (01) ==
LOC: ANHLAB 07:25
PROVIDERS: PCP Family Medicine; Visit Provider Physician Assistant Medical
DX: R53.82 Chronic fatigue, unspecified (principal); E55.9 Vitamin D deficiency, unspecified
CPT/HCPCS: 36415; 82306; 82607